=== PATIENT | female | born 1955 | race Caucasian/White ===

== ENCOUNTER 2023-12-01 08:35 | Outpatient (RCR) | payer MEDICARE, OTHER, SELFPAY | END 2023-12-01 23:59 | disposition home or self-care (01) | LOC: RPT 08:35 | PROVIDERS: ATTENDING PHYSICIAN Physician Assistant | DX: M16.12 Unilateral primary osteoarthritis, left hip (principal); M67.952 Unspecified disorder of synovium and tendon, left thigh; M76.892 Other specified enthesopathies of left lower limb, excluding foot; Z73.6 Limitation of activities due to disability; M62.81 Muscle weakness (generalized); M25.552 Pain in left hip; R26.2 Difficulty in walking, not elsewhere classified; R26.89 Other abnormalities of gait and mobility | CPT/HCPCS: 97010; 97110; 97140; 97162; 97530 ==

== ENCOUNTER 2023-12-27 08:31 | Emergency (ER) | payer MEDICARE, OTHER, SELFPAY ==
[2023-12-27 08:54] VITALS: BP 138/82
[2023-12-27] MEDS: PERCOCET 5/325 1 TABLET PO (10:12)
--- NOTE | 2023-12-27 10:47 | ED.GENMED ---
History of Present Illness
General
Chief Complaint: Musculo-Skeletal Complaint
Source: patient
Exam Limitations: none
Time Seen by Provider: 12/27/23 09:00
Nursing documentation reviewed up to this point in time: agreed with
Travel History
Have you had any contact with someone who has COVID-19?: No
Do you have any symptoms of coronavirus? Fever > 100 degrees, chills, cough, shortness of breath, sore throat, loss of taste or smell, muscle aches, or headache?: No
History of Present Illness
History of Present Illness:
68-year-old female past medical history of hypertension hyperlipidemia, thyroid disorder presenting to the emergency department today with concerns of left shoulder discomfort after she tripped and hit her shoulder directly on her dresser. Denies
additional symptoms no head trauma no neck pain no numbness or weakness.
Past History
Past History
ED Past Medical History: Hypercholesterolemia
ED Past Surgical History: None
Social History
Tobacco: Non-smoker
Alcohol: Occasional
Drug: None
Personal: Single
Living: with family
Employment: Employed
Review of Systems
Review of Systems
Allergies reviewed?: Yes
All Other Systems: ROS reviewed and negative except as documented in HPI and ROS
Phy Exam
Physical Exam
Physical Exam:
GENERAL: Alert , in no apparent distress
EYE: pupils equal and reactive
NECK: Supple, no significant adenopathy.
ENT: o/p clr, mmm.
CARDIAC: Regular rate and rhythm .
LUNGS: Clear breath sounds bilaterally, no acute respiratory distress, no wheezes/rales/rhonchi
ABDOMEN: Soft, without focal tenderness, no r/g, no cvat
NEUROLOGICAL: Alert and oriented, no focal neuro deficits
SKIN: Warm and dry, skin intact.
MUSCULOSKELETAL: Mild swelling tenderness palpation to the left shoulder at the distal portion of the clavicle. Good range of motion of the elbow wrist good fluorescent lamp replacer, well perfused.
PSYCH: Normal and appropriate interaction.
Course
Orders/Labs/Results
Orders:
Orders
12/27/23 08:56
Shoulder, Left, Trauma CR [CR Shoulder, Trauma - Left] Urgent
Comment:
Reason For Exam: injury
12/27/23 09:47
Sling Left-Treatment ONCE
Oxycodone/Acetaminophen [Percocet 5/325] 1 tablet PO NOW STA
Vital Signs
Initial and Last Documented VS:
Initial Vital Signs
Temp Pulse Resp BP Pulse Ox
98.2 F 88 16 138/82 98
12/27/23 08:54 12/27/23 08:54 12/27/23 08:54 12/27/23 08:54 12/27/23 08:54
Last Documented Vital Signs
Temp Pulse Resp BP Pulse Ox
98.2 F 88 16 138/82 98
12/27/23 08:54 12/27/23 08:54 12/27/23 08:54 12/27/23 08:54 12/27/23 08:54
MDM/Problems Addressed
MDM/Problems Addressed:
68-year-old female presenting to the emergency department today with concerns of left-sided shoulder discomfort after falling directly into her dresser at that level of her shoulder. Patient found to have a distal clavicle fracture, on x-ray
independently interpreted by me. Patient was given a sling otherwise neurovascular intact stable for outpatient management return precautions given.
*Critical Care Note
Total Time (30-74mins, 75-104mins- exclusive of procedures): Not Applicable
ED Attending Note
-
Portions of this chart may have been created with voice recognition software.� Occasional wrong word or��sound alike� substitutions may have occurred due to the inherent limitations of voice recognition software.
Discharge Plan
Departure
Patient Disposition: Home (Routine Discharge)
Date of Disposition: 12/27/23
Time of Disposition: 10:47
Patient with high blood pressure during this ER visit?: No
Condition: Good
Covid-19: Not Applicable
Discharge Problem:
Broken clavicle
Instructions: Broken Collarbone ED
Prescriptions:
New
oxycodone-acetaminophen [Endocet] 5-325 mg tablet
1 tab PO Q8H PRN (Reason: Pain) Qty: 7 0RF
No Action
L.acidoph, paracasei,B. lactis 1 EACH capsule
1 ea PO DAILY
sennosides [senna] 1 TABLET tablet
2 tab PO BID 0RF
hydromorphone 2 MG tablet
2 mg PO Q4HPRN PRN (Reason: moderate-severe pain) Qty: 60 0RF
Rx Instructions:
1 tab moderate pain or 2 if severe
dx khloe
ongoing
magnesium hydroxide 30 ML suspension
30 ml PO DAILYPRN PRN (Reason: constipation) 0RF
aspirin 325 MG tablet,delayed release (DR/EC)
325 mg PO DAILY 0RF
docusate sodium 100 MG capsule
100 mg PO BID 0RF
gabapentin 300 MG capsule
300 mg PO TID Qty: 40 0RF
Rx Instructions:
tid x 1 week, then bid , then stop
mupirocin 1 APPLIC ointment
1 applic intranasal BID 0RF
Rx Instructions:
use tonight then stop
famotidine 20 MG tablet
20 mg PO HS Qty: 30 0RF
acetaminophen [Tylenol Extra Strength] 500 MG tablet
1,000 mg PO QID Qty: 0 0RF
Rx Instructions:
STANDING ORDER
carvedilol 3.125 MG tablet
3.125 mg PO BID Qty: 1 0RF
tramadol 50 MG tablet
50 mg PO TID Qty: 30 0RF
meloxicam 15 MG tablet
15 mg PO DAILY Qty: 14 0RF
Rx Instructions:
WITH FOOD
DO NOT TAKE WITHIN 2H OR ASA
levothyroxine 125 MCG tablet
125 mcg PO DAILY
amoxicillin-pot clavulanate 1 TABLET tablet
1 tab PO Q12 Qty: 14 0RF
Referrals:
Guerrero Mckeon MD [Active] - Follow up in 1 week
Sarmad Elise MD [Family Provider] -
Activity Restrictions/Additional Instructions:
You came to the emergency department today with concerns of left-sided shoulder discomfort. You are found to have a broken clavicle. Please wear the sling and take pain medication as needed. Please closely with orthopedics return to the emergency
department for any worsening, new or concerning symptoms.
Interventions
Interventions:
*Risk Screen - Suicide Last Done: 12/27/23 08:54
*General Assessment Last Done: 12/27/23 08:54
*Neglect/Abuse Screening Last Done: 12/27/23 08:54
ED-Musculoskeletal Assessment Last Done: 12/27/23 09:43
== END 2023-12-27 10:59 | disposition home or self-care (01) ==
LOC: EMR 08:31
PROVIDERS: EMERGENCY PHYSICIAN Emergency Medicine; FAMILY PHYSICIAN Family Medicine
DX: S42.035A Nondisplaced fracture of lateral end of left clavicle, initial encounter for closed fracture (principal); W01.190A Fall on same level from slipping, tripping and stumbling with subsequent striking against furniture, initial encounter; I10 Essential (primary) hypertension; E78.00 Pure hypercholesterolemia, unspecified; E07.9 Disorder of thyroid, unspecified
CPT/HCPCS: 99283; 73030

== ENCOUNTER 2024-01-06 15:59 | Outpatient (RCR) | payer MEDICARE, OTHER, SELFPAY | END 2024-01-06 23:59 | disposition home or self-care (01) | LOC: RPT 15:59 | PROVIDERS: ATTENDING PHYSICIAN Physician Assistant | DX: M16.12 Unilateral primary osteoarthritis, left hip (principal); M67.952 Unspecified disorder of synovium and tendon, left thigh; M76.892 Other specified enthesopathies of left lower limb, excluding foot; Z73.6 Limitation of activities due to disability; M62.81 Muscle weakness (generalized); M25.552 Pain in left hip; R26.2 Difficulty in walking, not elsewhere classified | CPT/HCPCS: 97010; 97110; 97112; 97140; 97530 ==

== ENCOUNTER 2024-02-01 12:52 | Outpatient (RCR) | payer MEDICARE, OTHER, SELFPAY | END 2024-02-01 23:59 | disposition home or self-care (01) | LOC: RPT 12:52 | PROVIDERS: ATTENDING PHYSICIAN Physician Assistant | DX: M16.12 Unilateral primary osteoarthritis, left hip (principal); M67.952 Unspecified disorder of synovium and tendon, left thigh; M76.899 Other specified enthesopathies of unspecified lower limb, excluding foot; S42.035D Nondisplaced fracture of lateral end of left clavicle, subsequent encounter for fracture with routine healing; Z73.6 Limitation of activities due to disability; R26.2 Difficulty in walking, not elsewhere classified; M62.81 Muscle weakness (generalized); M25.552 Pain in left hip; R29.3 Abnormal posture; M25.512 Pain in left shoulder; W18.09XD Striking against other object with subsequent fall, subsequent encounter | CPT/HCPCS: 97110; 97112; 97164; 97530 ==

== ENCOUNTER 2024-02-28 13:03 | Outpatient (RCR) | payer MEDICARE, OTHER, SELFPAY | END 2024-02-29 10:21 | disposition home or self-care (01) | LOC: RPT 13:03 | PROVIDERS: ATTENDING PHYSICIAN Physician Assistant | DX: M16.12 Unilateral primary osteoarthritis, left hip (principal); M67.952 Unspecified disorder of synovium and tendon, left thigh; M76.899 Other specified enthesopathies of unspecified lower limb, excluding foot; S42.035D Nondisplaced fracture of lateral end of left clavicle, subsequent encounter for fracture with routine healing; Z73.6 Limitation of activities due to disability; M62.81 Muscle weakness (generalized); M25.552 Pain in left hip; R29.3 Abnormal posture; M25.512 Pain in left shoulder | CPT/HCPCS: 97110; 97140; 97530 ==

== ENCOUNTER → 2024-05-02 10:52 | Outpatient (REF) | payer MEDICARE, OTHER, SELFPAY | LOC: RAD 10:52 | PROVIDERS: ATTENDING PHYSICIAN Obstetrics & Gynecology; FAMILY PHYSICIAN Family Medicine | DX: R10.2 Pelvic and perineal pain (principal) | CPT/HCPCS: 76830; 76856 ==

== ENCOUNTER 2024-06-06 14:06 | Outpatient (RCR) | payer MEDICARE, OTHER, SELFPAY | END 2024-06-06 23:59 | disposition home or self-care (01) | LOC: RPT 14:06 | PROVIDERS: ATTENDING PHYSICIAN Orthopaedic Surgery | DX: M47.812 Spondylosis without myelopathy or radiculopathy, cervical region (principal); M54.2 Cervicalgia | CPT/HCPCS: 97010; 97110; 97140; 97162; 97535 ==

== ENCOUNTER 2024-07-06 14:54 | Outpatient (RCR) | payer MEDICARE, OTHER, SELFPAY | END 2024-07-06 23:59 | disposition home or self-care (01) | LOC: RPT 14:54 | PROVIDERS: ATTENDING PHYSICIAN Orthopaedic Surgery | DX: M47.812 Spondylosis without myelopathy or radiculopathy, cervical region (principal) | CPT/HCPCS: 97010; 97110; 97112; 97140 ==

== ENCOUNTER → 2024-08-03 11:54 | Outpatient (REF) | payer MEDICARE, OTHER, SELFPAY | LOC: PAVMRI 11:54 | PROVIDERS: ATTENDING PHYSICIAN Physician Assistant | DX: M47.812 Spondylosis without myelopathy or radiculopathy, cervical region (principal) | CPT/HCPCS: 72141; 97010; 97110; 97140 ==

== ENCOUNTER 2024-08-03 15:00 | Outpatient (RCR) | payer MEDICARE, OTHER, SELFPAY | END 2024-08-03 23:59 | disposition home or self-care (01) | LOC: RPT 15:00 | PROVIDERS: ATTENDING PHYSICIAN Orthopaedic Surgery | DX: M47.812 Spondylosis without myelopathy or radiculopathy, cervical region (principal); M54.2 Cervicalgia; M62.81 Muscle weakness (generalized) | CPT/HCPCS: 97010; 97110; 97140 ==

== ENCOUNTER 2024-08-17 14:40 | Outpatient (RCR) | payer MEDICARE, OTHER, SELFPAY | END 2024-08-17 23:59 | disposition home or self-care (01) | LOC: RPT 14:40 | PROVIDERS: ATTENDING PHYSICIAN Pain Medicine Interventional Pain Medicine | DX: M47.812 Spondylosis without myelopathy or radiculopathy, cervical region (principal) | CPT/HCPCS: 97010; 97110; 97140 ==

== ENCOUNTER → 2024-08-21 10:35 | Outpatient (REF) | payer MEDICARE, OTHER, SELFPAY | LOC: PAVMRI 10:35 | PROVIDERS: ATTENDING PHYSICIAN Internal Medicine Gastroenterology; FAMILY PHYSICIAN Nurse Practitioner Gerontology | DX: K86.2 Cyst of pancreas (principal) | CPT/HCPCS: 74183; A9575 ==

== ENCOUNTER → 2024-08-29 16:20 | Outpatient (REF) | payer MEDICARE, OTHER, SELFPAY | LOC: RAD 16:20 | PROVIDERS: ATTENDING PHYSICIAN Physician Assistant; FAMILY PHYSICIAN Nurse Practitioner Gerontology | DX: M15.9 Polyosteoarthritis, unspecified (principal); M25.531 Pain in right wrist | CPT/HCPCS: 73110 ==

== ENCOUNTER → 2025-03-02 07:38 | Outpatient (REF) | payer MEDICARE, OTHER, SELFPAY | LOC: RAD 07:38 | PROVIDERS: FAMILY PHYSICIAN Family Medicine; REFERRING PHYSICIAN Internal Medicine Gastroenterology | DX: R21 Rash and other nonspecific skin eruption (principal) | CPT/HCPCS: 76700 ==

== ENCOUNTER 2025-04-30 10:13 | Emergency (ER) | payer MEDICARE, OTHER, SELFPAY ==
[2025-04-30] VITALS (9 sets, daily range): BP systolic 123–139; BP diastolic 71–91; PULSE 53–65
[2025-04-30 11:28] LABS: % Basophils 0.3 % (0-2); % Eosinophils 3.1 % (0-6); % Immature Granulocytes 0.2 % (0-0.5); % Lymphocytes 30.3 % (20.5-51.1); % Neutrophils 59.1 % (42.2-75.2); Absolute Eosinophils 0.2 10^3/uL (0-0.7); Absolute Lymphocytes 1.8 10^3/uL (1.2-3.4); Absolute Monocytes 0.4 10^3/uL (0.1-0.6); Absolute Neutrophils 3.5 10^3/uL (1.4-6.5); Hematocrit 38.2 % (37.0-47.0); Hemoglobin 13.2 g/dL (12.0-16.0); Mean Corp Hgb Conc. 34.6 g/dL (33.0-37.0); Mean Corpuscular Hgb 34.1 pg (27.0-31.0); Mean Corpuscular Volume 98.7 fL (81.0-99.0); Mean Platelet Volume 10.6 fL (7.4-10.4); Nucleated Red Blood Cells % 0 %; Platelet Count 263 10^3/uL (130-400); Red Blood Cell Count 3.87 10^6/uL (4.20-5.40); Red Cell Dist. Width 12.4 % (11.5-14.5); White Blood Cell Count 5.9 10^3/uL (4.8-10.8)
[2025-04-30 12:54] LABS: ALT (SGPT) 19 U/L (0-35); AST (SGOT) 51 U/L (14-36); Albumin 4.4 g/dl (3.5-5.0); Alkaline Phosphatase 54 U/L (38-126); Blood Urea Nitrogen 9 mg/dl (7-17); Calcium 9.4 mg/dl (8.4-10.2); Carbon Dioxide 25 mmol/L (22-30); Chloride 99 mmol/L (98-107); Glucose 107 mg/dl (70-99); Lipase 113 U/L (23-300); Potassium 4.2 mmol/L (3.5-5.1); Sodium 132 mmol/L (135-145); Total Bilirubin 0.7 mg/dl (0.2-1.3); Total Protein 6.9 g/dl (6.3-8.2); eGFR > 60.00
[2025-04-30] MEDS: NSS 1000 IV (14:31)
--- NOTE | 2025-04-30 15:11 | ED.GENMED ---
History of Present Illness
General
Chief Complaint: Dizziness
Source: patient
Time Seen by Provider: 04/30/25 11:59
History of Present Illness
History of Present Illness:
Note:
CHIEF COMPLAINT(S)
Dizziness, nausea, and fatigue.
HISTORY OF PRESENT ILLNESS
The patient is a 69-year-old female presenting with dizziness, nausea, and severe fatigue. Symptoms began Wednesday morning following a single drink on Wednesday night, though she normally consumes more than one drink. She describes the dizziness as a
sense of imbalance when walking, which causes nausea, but denies room spinning or true vertigo. She reports being unable to eat and feeling most comfortable lying down, which led her to sleep extensively but without relief upon awakening the next
morning. There is also a history of right-sided abdominal pain described as feeling like 'a football' upon bending over, associated with a cyst on the pancreas and a newly discovered mass on the right kidney. The patient was scheduled for a renal
scan which was postponed due to feeling unwell. Additional symptoms include nocturia and cramping in the legs, with recent onset of toe numbness. She reports a history of elevated liver enzymes, likely related to alcohol use, but has resolved to
cease drinking, especially after consuming more than usual at her sons wedding last week.
EXTERNAL RECORDS REVIEWED
Performed ultrasounds and MRIs revealing cysts on the pancreas and liver.
CHRONIC MEDICAL CONDITIONS SIGNIFICANTLY AFFECTING CARE
Chronic conditions affecting care: high cholesterol, elevated liver enzymes.
SOCIAL DETERMINANTS AFFECTING HEALTH
The patient has a history of daily evening alcohol consumption, which she plans to eliminate.
REVIEW OF SYSTEMS
- Gastrointestinal: Right-sided abdominal pain, nocturnal urination without dysuria.
- Neurological: No new motor weakness reported, but numbness in the toes and occasional leg cramping experienced recently.
- Musculoskeletal: History of a hip replacement.
- Ear, Nose, and Throat: No reports of sensory weakness or balance issues corroborated by examination.
PHYSICAL EXAM
- Vital signs and nursing notes reviewed.
- Neurological: No pronator drift, normal [id number] testing, cranial nerves intact. Motor strength normal in all extremities.
- Cardiovascular: Regular heart rate and rhythm without murmur.
- Respiratory: Clear lung bhatti on auscultation bilaterally.
- Extremities: Warm and well-perfused.
PLAN
1. Evaluate laboratory work to assess electrolyte balance and potential underlying abnormalities.
2. Perform a CT scan of the brain to investigate for structural causes of dizziness, such as stroke or lesion.
3. Review sodium levels and other electrolytic components.
4. Bio Medical Technician on alcohol cessation due to potential contribution to symptoms and elevated liver enzymes.
5. Follow up on the postponed renal scan to investigate the kidney mass.
DIFFERENTIAL DIAGNOSIS
The Differential Diagnosis includes, in no particular order and is not limited to:
1. Benign paroxysmal positional vertigo
2. Vestibular neuritis
3. Labyrinthitis
4. Orthostatic hypotension
5. Alcohol withdrawal syndrome
6. Side effects of chronic alcohol use
7. Anemia
8. Dehydration
9. Electrolyte imbalance
10. Subclinical hepatic encephalopathy
CARE-UPDATE
04/30/25 - 15:04
The patient reports feeling cold and shivering, likely due to the administration of IV fluids. The CT scan results are normal, and lab work is within normal limits. Vital signs are stable, with a heart rate of 62 bpm and blood pressure at 127/78
mmHg. A physical exam revealed normal [id number] testing, suggesting no focal neurological deficits at this time. Advised the patient to start vitamin B complex supplements, particularly due to potential alcohol-related depletion. The patient
should refrain from alcohol for the next one to two weeks and increase fluid intake, including electrolyte solutions to help with potential dehydration. No immediate need for a brain MRI, but follow-up with the family doctor is recommended should
symptoms persist or worsen. An ear examination showed no significant abnormalities that would suggest inner ear involvement in dizziness; however, mild redness was noted in one ear. The goal is to observe improvement with fluid administration.
EKG
My independent EKG interpretation is:
- Rhythm: Sinus bradycardia
- Heart Rate: 58 bpm
- Bonnie: Normal
- Notable Intervals: No mention of specific intervals
- Abnormalities: No acute ischemic changes
Disposition:
SUMMARY OF ENCOUNTER
A 69-year-old female presented to the emergency department with dizziness and nausea. She reports no focal neurological findings and maintains a normal gait. The dizziness began following alcohol consumption. Management in the ED included
administration of IV fluids, which improved her symptoms. Clinical assessment included a CT scan of the head, which showed no abnormalities. Lab tests revealed only mild hyponatremia, with normal white blood cell count, hemoglobin, kidney function
(creatinine), calcium, and liver function tests. The patient was determined to be stable for outpatient management and was advised to follow up with her primary care physician.
INDEPENDENT REVIEW OF LABS AND INTERPRETATION OF TESTS
- My independent review of lab results is: normal white blood cell count, normal hemoglobin, mild hyponatremia, normal creatinine indicating normal kidney function, normal calcium levels, and grossly unremarkable liver function tests.
- My independent interpretation of the CT scan of the head is normal, showing no abnormalities.
PLAN
Administer IV fluids to manage hydration and symptoms related to mild hyponatremia and probable alcohol-related dehydration. Recommend vitamin B complex due to the patients history of frequent alcohol consumption. Arrange for outpatient follow-up
with the primary care physician for further assessment and monitoring.
MEDICAL DECISION MAKING
1. Number & Complexity of Problems: Chronic conditions affecting care include high cholesterol and a history of elevated liver enzymes. Differential diagnoses considered include effects of chronic alcohol use and electrolyte imbalance.
2. Data Reviewed: Labs, imaging ordered and reviewed included CBC, metabolic panel, CT scan of the head, and EKG.
PATIENT EDUCATION AND COUNSELING
Advised the patient to increase fluid intake and to start vitamin B complex supplements. Instructed on the potential impacts of alcohol on her condition and the importance of follow-up care.
FOLLOW-UP INSTRUCTIONS
The patient is to follow up with her primary care physician for continued monitoring and management of symptoms, and assessment of any ongoing or related conditions.
MEDICATION RECONCILIATION
Patient was advised to begin vitamin B complex supplements.
DIAGNOSIS
Mild hyponatremia, potential dehydration secondary to alcohol use.
Dizziness
PATHOLOGIES TO CONSIDER
- Electrolyte imbalance
- Alcohol withdrawal syndrome (less likely but monitored due to the history of alcohol use)
Past History
Past History
ED Past Medical History: Hypercholesterolemia
ED Past Surgical History: None
Social History
Tobacco: Non-smoker
Alcohol: Occasional
Drug: None
Personal: Single
Living: with family
Employment: Employed
Phy Exam
Physical Exam
Physical Exam:
.
Course
Orders/Labs/Results
Orders:
Orders
04/30/25 11:08
Complete Blood Count/With Diff Urgent
04/30/25 11:15
Electrocardiogram (*1) Urgent
Reason for Study: Vertigo / Dizzy
EKG- Treatment ONCE
04/30/25 12:17
CT Head W/o Iv Contrast Urgent
Comment:
Reason For Exam: dizziness, gait disturbance
04/30/25 12:20
Comprehensive Metabolic Panel Routine
Lipase Routine
04/30/25 14:22
0.9% Sodium Chloride 1000 ml [Nss] 1,000 ml IV BOLUS
Abnormal Lab Results
04/30/25 04/30/25
11:08 12:20
RBC 3.87 L 10^6/uL
(4.20-5.40)
MCH 34.1 H pg
(27.0-31.0)
MPV 10.6 H fL
(7.4-10.4)
Sodium 132 L mmol/L
(135-145)
Glucose 107 H mg/dl
(70-99)
AST 51 H U/L
(14-36)
04/30/25 11:08
04/30/25 12:20
Vital Signs
Initial and Last Documented VS:
Initial Vital Signs
Temp Pulse Resp BP Pulse Ox
97.7 F 66 14 127/85 98
04/30/25 10:16 04/30/25 10:16 04/30/25 10:16 04/30/25 10:16 04/30/25 10:16
Last Documented Vital Signs
Temp Pulse Resp BP Pulse Ox
97.7 F 67 13 127/78 98
04/30/25 10:16 04/30/25 15:15 04/30/25 15:00 04/30/25 14:25 04/30/25 15:15
*Pulse Oximetry
SaO2: 98
Oxygen Mode of Delivery: Room air
Patient hypoxic: no
*Critical Care Note
Total Time (30-74mins, 75-104mins- exclusive of procedures): Not Applicable
ED Attending Note
-
Portions of this chart may have been created with voice recognition software.� Occasional wrong word or��sound alike� substitutions may have occurred due to the inherent limitations of voice recognition software.
Discharge Plan
Departure
Patient Disposition: Home (Routine Discharge)
Date of Disposition: 04/30/25
Time of Disposition: 15:13
Patient with high blood pressure during this ER visit?: No
Discharge Problem:
Dizziness
Instructions: Dizziness
Prescriptions:
No Action
L.acidoph,paracasei,B.animalis 1 EACH capsule
1 ea PO DAILY
sennosides [senna] 1 TABLET tablet
2 tab PO BID 0RF
hydromorphone 2 MG tablet
2 mg PO Q4HPRN PRN (Reason: moderate-severe pain) Qty: 60 0RF
Rx Instructions:
1 tab moderate pain or 2 if severe
dx khloe
ongoing
magnesium hydroxide 30 ML suspension
30 ml PO DAILYPRN PRN (Reason: constipation) 0RF
aspirin 325 MG tablet,delayed release (DR/EC)
325 mg PO DAILY 0RF
docusate sodium 100 MG capsule
100 mg PO BID 0RF
gabapentin 300 MG capsule
300 mg PO TID Qty: 40 0RF
Rx Instructions:
tid x 1 week, then bid , then stop
mupirocin 1 APPLIC ointment
1 applic intranasal BID 0RF
Rx Instructions:
use tonight then stop
famotidine 20 MG tablet
20 mg PO HS Qty: 30 0RF
acetaminophen [Tylenol Extra Strength] 500 MG tablet
1,000 mg PO QID Qty: 0 0RF
Rx Instructions:
STANDING ORDER
carvedilol 3.125 MG tablet
3.125 mg PO BID Qty: 1 0RF
tramadol 50 MG tablet
50 mg PO TID Qty: 30 0RF
meloxicam 15 MG tablet
15 mg PO DAILY Qty: 14 0RF
Rx Instructions:
WITH FOOD
DO NOT TAKE WITHIN 2H OR ASA
levothyroxine 125 MCG tablet
125 mcg PO DAILY
amoxicillin-pot clavulanate 1 TABLET tablet
1 tab PO Q12 Qty: 14 0RF
oxycodone-acetaminophen [Endocet] 5-325 mg tablet
1 tab PO Q8H PRN (Reason: Pain) Qty: 7 0RF
Referrals:
Abdiel Muñoz CRNP [Family Provider, General]
Activity Restrictions/Additional Instructions:
Please see your doctor in the next 1 week for follow-up and reevaluation. Return immediately for worsening symptoms, vomiting, vision changes, motor weakness or any other concerns. Be sure to drink plenty of fluids. Also consider taking a vitamin
B complex daily. Continue to refrain from alcohol use.
Interventions
Interventions:
*Risk Screen - Suicide Last Done: 04/30/25 11:09
*General Assessment Last Done: 04/30/25 11:09
*Neglect/Abuse Screening Last Done: 04/30/25 11:09
*ED- Fall Risk Assessment Last Done: 04/30/25 11:09
*ED COVID-19 Vaccine History Last Done: 04/30/25 11:09
*Nursing Disposition Last Done: 04/30/25 15:31
ED- Neurological Assessment Last Done: 04/30/25 11:19
ED- Cardiac Assessment Last Done: 04/30/25 11:19
Discharge Date and Time
Discharge Date/Time: 04/30/25 15:34
Print Language: [id number]
== END 2025-04-30 15:34 | disposition home or self-care (01) ==
LOC: EMR 10:13
PROVIDERS: EMERGENCY PHYSICIAN Emergency Medicine; FAMILY PHYSICIAN Nurse Practitioner Gerontology
DX: R42 Dizziness and giddiness (principal); R11.0 Nausea; E87.1 Hypo-osmolality and hyponatremia; E87.8 Other disorders of electrolyte and fluid balance, not elsewhere classified; E78.00 Pure hypercholesterolemia, unspecified
CPT/HCPCS: 99284; 96360; 70450; 80053; 83690; 85025; 93005

== ENCOUNTER → 2025-05-03 09:50 | Outpatient (REF) | payer MEDICARE, OTHER, SELFPAY | LOC: RAD 09:50 | PROVIDERS: ATTENDING PHYSICIAN Urology; FAMILY PHYSICIAN Nurse Practitioner Gerontology | DX: Q62.5 Duplication of ureter (principal) | CPT/HCPCS: 78708; A9539 ==

== ENCOUNTER → 2025-05-10 09:15 | Outpatient (REF) | payer MEDICARE, OTHER, SELFPAY | LOC: RCS 09:15 | PROVIDERS: ATTENDING PHYSICIAN Internal Medicine Cardiovascular Disease; FAMILY PHYSICIAN Nurse Practitioner Gerontology | DX: I49.3 Ventricular premature depolarization (principal) | CPT/HCPCS: 93225; 93226 ==

== ENCOUNTER 2025-06-04 14:11 | Outpatient (RCR) | payer MEDICARE, OTHER, SELFPAY | END 2025-06-04 23:59 | disposition home or self-care (01) | LOC: RPT 14:11 | PROVIDERS: ATTENDING PHYSICIAN Physician Assistant | DX: M47.812 Spondylosis without myelopathy or radiculopathy, cervical region (principal); M50.30 Other cervical disc degeneration, unspecified cervical region; Z73.6 Limitation of activities due to disability; M54.6 Pain in thoracic spine | CPT/HCPCS: 97010; 97110; 97112; 97140; 97161; 97535 ==

== ENCOUNTER 2025-06-25 13:51 | Outpatient (RCR) | payer MEDICARE, OTHER, SELFPAY | END 2025-06-26 07:31 | disposition home or self-care (01) | LOC: RPT 13:51 | PROVIDERS: ATTENDING PHYSICIAN Physician Assistant | DX: M47.812 Spondylosis without myelopathy or radiculopathy, cervical region (principal); M50.30 Other cervical disc degeneration, unspecified cervical region; Z73.6 Limitation of activities due to disability; M54.6 Pain in thoracic spine | CPT/HCPCS: 97010; 97110; 97112; 97140 ==